=== PATIENT | female | born 1960 | race African-American/Black ===

== ENCOUNTER 2021-03-21 01:44 | Inpatient (IN) ==
[2021-03-21] MEDS ORDERED: ETOMIDATE 20 MG/10 ML VIAL IV ONE (02:07)
[2021-03-21] MEDS ORDERED: VECURONIUM 10 MG VIAL IV ONE (02:07)
[2021-03-21] MEDS ORDERED: PIPERACILLIN/TAZOBACTAM 3,375 MG in SODIUM CHLORIDE 0.9% 100 ML IV STA ×2 (02:12→02:28)
[2021-03-21] MEDS ORDERED: SODIUM CHLORIDE 0.9% 500 ML IV STA (02:12)
[2021-03-21] MEDS ORDERED: PANTOPRAZOLE 40 MG VIAL IV STA (02:28)
[2021-03-21] MEDS ORDERED: SODIUM CHLORIDE 0.9% 1,000 ML IV STA ×3 (02:28→05:24)
[2021-03-21 02:33] LABS: ABG Base Excess -22.1 MMOL/L (-2.5-2.5); ABG HCO3 8.7 MMOL/L (20-26); ABG Oxygen Saturation 96.1 % (95-100); ABG PCO2 35.5 MM HG (35-48); ABG TCO2 8.5 MMOL/L (23-27)
[2021-03-21 02:35] LABS: ABG PH 6.997 (7.35-7.45)
[2021-03-21 02:36] LABS: INR 1.4; PT Patient Result 15.2 SECS (10.5-12.0)
[2021-03-21] MEDS ORDERED: SODIUM BICARBONATE 50 MEQ/50 ML VIAL IV STA (02:44)
[2021-03-21] MEDS ORDERED: SODIUM BICARBONATE 50 MEQ/50 ML SYRINGE IV ONE (02:45)
[2021-03-21 03:01] LABS: Basophils # 0.1 10*3/uL (0.0-0.2); Basophils % 0.4 % (0.0-0.8); Eosinophils % 0.1 % (0.00-10.9); Hematocrit 38.6 VOL% (35.7-47.0); Hemoglobin 11.3 GM/DL (12.0-16.0); Immature Granulocytes % 1.9 %; Immature Granulocytes Absolute 0.36 #; Lymphocytes # 8.1 10*3/uL (1.4-4.0); Lymphocytes % 43.3 % (21.3-54.2); Mean Corpuscular HGB Conc 29.3 GM/DL (32-36); Mean Corpuscular Volume 94.1 FL (87-102); Monocytes % 4.8 % (1.7-12.7); NRBC # 0.41 10*3/uL; Neutrophils % 49.5 % (38.7-73.9); Platelet Count 204 T/CUMM (130-400); Red Cell Distribution Width 21.1 % (9.3-17.3); White Blood Count 18.8 T/CUMM (4-12)
[2021-03-21] MEDS ORDERED: NOREPINEPHRINE 8 MG in SODIUM CHLORIDE 0.9% 242 ML IV PRN (03:06)
[2021-03-21] MEDS ORDERED: NOREPINEPHRINE 4 MG/4 ML VIAL IV ONE ×2 (03:08→09:30)
[2021-03-21 03:50] LABS: Lymphocytes 46 % (20-55); Platelet Estimate Adequate; Segmented Neutrophils 49 % (50-85); Total Cells Counted 100
[2021-03-21] MEDS ORDERED: SODIUM CHLORIDE 0.9% 2,650 ML IV ONE (04:59)
[2021-03-21] MEDS ORDERED: DOCUSATE SODIUM 100 MG CAPSULE PO PRN (05:05)
[2021-03-21] MEDS ORDERED: ONDANSETRON 4 MG/2 ML VIAL IV PRN (05:05)
[2021-03-21] MEDS ORDERED: ALBUTEROL 2.5 MG/3 ML NEB RESP TX PRN (05:05)
[2021-03-21] MEDS ORDERED: ACETAMINOPHEN 325 MG TABLET PO PRN (05:05)
[2021-03-21] MEDS ORDERED: fentaNYL INJ 1,250 MCG in SODIUM CHLORIDE 0.9% 225 ML IV PRN (05:06)
[2021-03-21] MEDS ORDERED: MIDAZOLAM 100 MG in SODIUM CHLORIDE 0.9% 80 ML IV PRN (05:06)
[2021-03-21 05:14] LABS: Sodium 141 MMOL/L (136-145)
[2021-03-21 05:15] LABS: Potassium 6.6 MMOL/L (3.5-5.1)
[2021-03-21 05:16] LABS: Blood Urea Nitrogen 70 MG/DL (7-18); Carbon Dioxide 9 MMOL/L (21-32); Estimated Glom Filtration Rate 12 ML/MIN; Glucose 98 MG/DL (74-106); Osmolality,Calculated 301.3 MOS/KG (273-304)
[2021-03-21] MEDS ORDERED: HYDROCORTISONE 100 MG VIAL IV STA (05:19)
[2021-03-21] MEDS ORDERED: VANCOMYCIN INJ 1,250 MG in SODIUM CHLORIDE 0.9% 250 ML IV ONE (05:30)
[2021-03-21] MEDS ORDERED: MEROPENEM 500 MG in SODIUM CHLORIDE 0.9% 100 ML IV SCH (05:30)
[2021-03-21 05:44] LABS: ABG Base Excess -11.2 MMOL/L (-2.5-2.5); ABG HCO3 15.6 MMOL/L (20-26); ABG PH 7.289 (7.35-7.45); ABG TCO2 13.4 MMOL/L (23-27)
[2021-03-21 05:44] LABS: Alkaline Phosphatase 64 U/L (45-117); Aspartate Amino Transferase 77 U/L (0-37); Calcium 10.8 MG/DL (8.5-10.1)
[2021-03-21] MEDS: metroNIDAZOLE INJ 500 MG/100 ML PREMIX IV SCH ×3 (05:51→21:20)
[2021-03-21 06:00] LABS: Total Protein > 12.0 G/DL (6.4-8.2)
[2021-03-21] MEDS: MEROPENEM 500 MG in SODIUM CHLORIDE 0.9% 100 ML IV SCH ×2 (06:45→18:28)
[2021-03-21] MEDS: SODIUM BICARB INJ 150 MEQ in DEXTROSE 5% 1,000 ML IV SCH ×2 (08:36→18:05)
[2021-03-21 09:33] LABS: Immunoglobulin A < 31 MG/DL (70-400); Immunoglobulin G 8660 MG/DL (700-1600); Immunoglobulin M 24 MG/DL (40-230)
[2021-03-21] MEDS: NOREPINEPHRINE 16 MG in SODIUM CHLORIDE 0.9% 234 ML IV PRN ×3 (09:35→21:01)
[2021-03-21] MEDS ORDERED: DEXAMETHASONE INJ 40 MG in SODIUM CHLORIDE 0.9% 50 ML IV ONE ×2 (10:00→12:00)
[2021-03-21] MEDS ORDERED: VANCOMYCIN INJ 1,250 MG in SODIUM CHLORIDE 0.9% 250 ML IV SCH (10:00)
[2021-03-21] MEDS ORDERED: PIPERACILLIN/TAZOBACTAM 3,375 MG in SODIUM CHLORIDE 0.9% 100 ML IV SCH (10:00)
[2021-03-21 11:00] LABS: Calcium 8.4 MG/DL (8.5-10.1); Osmolality,Calculated 304.1 MOS/KG (273-304); Potassium 5.9 MMOL/L (3.5-5.1)
[2021-03-21] MEDS ORDERED: ASPIRIN EC 81 MG TABLET PO SCH (11:00)
[2021-03-21] MEDS ORDERED: HYDROCORTISONE 100 MG VIAL IV SCH (11:00)
[2021-03-21] MEDS ORDERED: ASPIRIN CHEW 81 MG TABLET PO SCH (11:06)
[2021-03-21 11:19] VITALS: BP 104/47
[2021-03-21] MEDS: SODIUM ZIRCONIUM CYCLOSILICATE 10 GM PACK PO SCH ×3 (11:26→21:20)
[2021-03-21 11:40] LABS: ABG Base Excess -15.6 MMOL/L (-2.5-2.5); ABG HCO3 12.6 MMOL/L (20-26); ABG Oxygen Saturation 98.6 % (95-100); ABG PCO2 25.2 MM HG (35-48); ABG PH 7.237 (7.35-7.45); ABG TCO2 9.9 MMOL/L (23-27)
[2021-03-21] MEDS: DESITIN 4OZ/NYSTATIN 15 GRAM MIXTURE PASTE TOP SCH ×2 (12:16→21:17)
[2021-03-21] MEDS: ASPIRIN CHEW 81 MG TABLET PO SCH (12:16)
[2021-03-21 14:38] LABS: Calcium 8.7 MG/DL (8.5-10.1); Osmolality,Calculated 297.7 MOS/KG (273-304)
[2021-03-21 14:42] LABS: Potassium 6.3 MMOL/L (3.5-5.1)
[2021-03-21 18:29] LABS: ABG Base Excess -14.9 MMOL/L (-2.5-2.5); ABG Oxygen Saturation 98.1 % (95-100); ABG PH 7.247 (7.35-7.45); ABG TCO2 10.5 MMOL/L (23-27)
[2021-03-21 18:55] LABS: Alanine Aminotransferase 503 U/L (13-56); Alkaline Phosphatase 58 U/L (45-117); Aspartate Amino Transferase 638 U/L (0-37); Bilirubin,Total < 0.39 MG/DL (0.20-1.00); Blood Urea Nitrogen 50 MG/DL (7-18); Calcium 7.9 MG/DL (8.5-10.1); Carbon Dioxide 12 MMOL/L (21-32); Estimated Glom Filtration Rate 15 ML/MIN; Glucose 76 MG/DL (74-106); Osmolality,Calculated 275.5 MOS/KG (273-304); Potassium 5.7 MMOL/L (3.5-5.1); Sodium 132 MMOL/L (136-145); Total Protein 11.4 G/DL (6.4-8.2)
[2021-03-21] MEDS: PHENYLEPHRINE INJ 80 MG in SODIUM CHLORIDE 0.9% 242 ML IV PRN (20:22)
[2021-03-22] MEDS: NOREPINEPHRINE 16 MG in SODIUM CHLORIDE 0.9% 234 ML IV PRN ×5 (00:40→13:09)
[2021-03-22] MEDS: SODIUM BICARB INJ 150 MEQ in DEXTROSE 5% 1,000 ML IV SCH ×2 (02:57→11:50)
[2021-03-22 03:52] LABS: ABG Base Excess -20.2 MMOL/L (-2.5-2.5); ABG HCO3 5.3 MMOL/L (20-26); ABG Oxygen Saturation 99.1 % (95-100); ABG PH 7.213 (7.35-7.45); ABG PO2 253.5 MM HG (80-95); ABG TCO2 5.7 MMOL/L (23-27)
[2021-03-22 03:54] LABS: ABG PCO2 13.5 MM HG (35-48)
[2021-03-22 04:12] LABS: Basophils # 0.1 10*3/uL (0.0-0.2); Basophils % 0.3 % (0.0-0.8); Eosinophils % 0.1 % (0.00-10.9); Hematocrit 33.4 VOL% (35.7-47.0); Hemoglobin 9.8 GM/DL (12.0-16.0); Immature Granulocytes % 4.1 %; Immature Granulocytes Absolute 0.73 #; Lymphocytes # 6.4 10*3/uL (1.4-4.0); Lymphocytes % 35.6 % (21.3-54.2); Mean Corpuscular HGB Conc 29.3 GM/DL (32-36); Mean Corpuscular Volume 93.6 FL (87-102); Mean Platelet Volume 10.5 FL (9.6-12.0); Monocytes % 4.3 % (1.7-12.7); NRBC # 0.67 10*3/uL; Neutrophils % 55.6 % (38.7-73.9); Platelet Count 105 T/CUMM (130-400); Red Blood Count 3.57 MC/CUMM (3.8-5.5); Red Cell Distribution Width 21.2 % (9.3-17.3)
[2021-03-22 04:33] LABS: Band Neutrophils 1 % (0-10); Lymphocytes 31 % (20-55); Nucleated Red Blood Cells 4 (0-5); Platelet Estimate Decreased; Segmented Neutrophils 67 % (50-85); Total Cells Counted 100
[2021-03-22 04:40] LABS: Albumin 0.8 G/DL (3.4-5.0); Bilirubin,Total 0.5 MG/DL (0.20-1.00); Calcium 7.1 MG/DL (8.5-10.1); Osmolality,Calculated 291.8 MOS/KG (273-304); Potassium 5.8 MMOL/L (3.5-5.1)
[2021-03-22] MEDS: metroNIDAZOLE INJ 500 MG/100 ML PREMIX IV SCH (05:17)
[2021-03-22] MEDS: MEROPENEM 500 MG in SODIUM CHLORIDE 0.9% 100 ML IV SCH (05:17)
[2021-03-22] MEDS: PHENYLEPHRINE INJ 80 MG in SODIUM CHLORIDE 0.9% 242 ML IV PRN ×2 (06:01→11:32)
[2021-03-22] MEDS ORDERED: DEXTROSE 5% IV SCH ×2 (06:25→07:14)
[2021-03-22] MEDS ORDERED: SODIUM BICARB IV SCH ×2 (06:25→07:14)
[2021-03-22 06:40] LABS: ABG Base Excess -22.2 MMOL/L (-2.5-2.5); ABG HCO3 8.6 MMOL/L (20-26); ABG Oxygen Saturation 98.5 % (95-100); ABG TCO2 5.4 MMOL/L (23-27)
[2021-03-22 06:45] LABS: ABG PCO2 16.5 MM HG (35-48); ABG PH 7.148 (7.35-7.45)
[2021-03-22] MEDS ORDERED: SODIUM CHLORIDE 0.9% 1,000 ML IV ONE ×2 (07:28→10:42)
[2021-03-22 08:34] LABS: Immunoglobulin A (Chem) 31 MG/DL (70-400); Immunoglobulin G (Chem) 8660 MG/DL (700-1600); Immunoglobulin M (Chem) 24 MG/DL (40-230)
[2021-03-22] MEDS ORDERED: PANTOPRAZOLE 40 MG VIAL IV SCH (09:00)
[2021-03-22] MEDS ORDERED: PNEUMOCOCCAL VACCINE (13 VALENT) 0.5 ML SYRINGE IM ONE (09:00)
[2021-03-22] MEDS ORDERED: DEXAMETHASONE INJ 20 MG in SODIUM CHLORIDE 0.9% 50 ML IV SCH (09:00)
[2021-03-22] MEDS ORDERED: LIDOCAINE 1% 20 ML VIAL ONE (09:14)
[2021-03-22] MEDS ORDERED: HEPARIN/NACL 0.9% 2 UNITS/ML 1,000 UNIT/500 ML BAG IV ONE (09:14)
[2021-03-22] MEDS ORDERED: DEXAMETHASONE INJ 40 MG in SODIUM CHLORIDE 0.9% 50 ML IV SCH (10:00)
[2021-03-22 10:11] LABS: Albumin (SPE) 1.8 G/DL (3.2-5.3); Albumin (SPE) Rel % 15.2 %; Alpha 1 (SPE) 0.2 G/DL (0.1-0.4); Alpha 1 (SPE) Rel % 1.9 %; Alpha 2 (SPE) 1.3 G/DL (0.4-1.0); Alpha 2 (SPE) Rel % 10.6 %; Beta (SPE) 0.7 G/DL (0.5-1.1); Beta (SPE) Rel % 5.8 %; Gamma (SPE) Rel % 66.5 %
[2021-03-22] MEDS ORDERED: VASOPRESSIN 100 UNITS in SODIUM CHLORIDE 0.9% 95 ML IV PRN (11:06)
[2021-03-22 11:07] LABS: Hepatitis B Surface Ag Quant < 0.10 Index; Hepatitis B Surface Ag Result Non-Reactive (NonReactive); Hepatitis C Virus Ab Quant 0.06 Index; Hepatitis C Virus Ab Result Non-Reactive (NonReactive)
[2021-03-22] MEDS: ASPIRIN CHEW 81 MG TABLET PO SCH (12:06)
[2021-03-22] MEDS ORDERED: PHENYLEPHRINE INJ 160 MG in SODIUM CHLORIDE 0.9% 234 ML IV PRN (12:19)
[2021-03-22] MEDS ORDERED: DEXTROSE 50% 25 GM/50 ML SYRINGE IV ONE (13:05)
[2021-03-22 13:06] LABS: VBG Base Excess -26.3 MEQ/L (0-4); VBG HCO3 6.9 MEQ/L (24-28); VBG Oxygen Saturation 47.7 %; VBG PCO2 46.2 MMHG (41-51); VBG PH 6.887; VBG PO2 41.2 MMHG (17-40); VBG Total CO2 8.8 MMOL/L
[2021-03-22] MEDS ORDERED: DEXTROSE 50% 25 GM/50 ML SYRINGE IV PRN (13:20)
[2021-03-22] MEDS: DESITIN 4OZ/NYSTATIN 15 GRAM MIXTURE PASTE TOP SCH (13:22)
[2021-03-22] MEDS: SODIUM ZIRCONIUM CYCLOSILICATE 10 GM PACK PO SCH (13:22)
[2021-03-22] MEDS ORDERED: MORPHINE 2 MG/1 ML SYRINGE IV PRN (14:29)
[2021-03-22] MEDS ORDERED: LORazepam 2 MG/1 ML VIAL IV PRN (14:29)
== END 2021-03-22 14:54 | disposition expired | DRG 871 ==
LOC: N.ED 01:44 → N.EDINP 04:55 → N.CC 09:08
PROVIDERS: ADMIT Internal Medicine; ATTEND Internal Medicine